=== PATIENT | male | born 1990 | race Caucasian/White ===

== ENCOUNTER → 2017-03-26 | Emergency (ER) | payer SELFPAY ==
[~2017-03-26] VITALS: Ht 175.3 cm; Wt 58.1 kg
[~2017-03-26] MED LIST: HYDR50CA PO; KCL 10 MEQ TAB (MICRO K) PO ONE; LACTATED RINGERS 1,000 ML IV ONE
--- NOTE | 2017-03-26 16:42 | ED General ---
General Chief Complaint: Neurological Problems Stated Complaint: POSSIBLE SEIZURE Source of Information: Patient, Family (DAD) History of Present Illness Time Seen by Provider: 16:27 Initial Comments PT ARRIVES VIA POV FROM HOME DAD THINKS IS HAVING A "SEIZURE"--PT IS NOT SEIZING, BUT IS HYPERVENTILATING AND HAVING CARPAL-PEDAL SPASMS AND IS NEARLY-HYSTERICAL, AND PT IS AWAKE, A & O X 4 AND TALKING THIS IS 3RD EPISODE IN LAST 24 HOURS, LAST TIME WAS EARLIER THIS AM DAD STATES HE HAS THESE AT LEAST 5-6 TIMES A YEAR NO RECENT ILLNESS DENIES ANY STRESSORS PT TAKES NO MEDICATIONS AND DENIES ANY MEDICAL PROBLEMS, WITH NO PRIOR HOSPITALIZATIONS OR SURGERIES PCP: [facility] Allergies and Home Medications Allergies Coded Allergies: No Known Drug Allergies (Unverified , 03/26/17) Constitutional: no symptoms reported EENTM: no symptoms reported Respiratory: see HPI (HYPERVENTILATING) Cardiovascular: no symptoms reported Gastrointestinal: no symptoms reported Genitourinary: no symptoms reported Musculoskeletal: see HPI Skin: no symptoms reported Psychiatric/Neurological: See HPI, Anxiety Hematologic/Lymphatic: No Symptoms Reported Immunological/Allergic: no symptoms reported Past [id number]-Odymjt Hx Patient Social History Alcohol Use: Occasionally Uses Recreational Drug Use: Yes (THC) Smoking Status: Current Everyday Smoker Type Used: Cigarettes Surgeries History of Surgeries: No Respiratory History of Respiratory Disorde: No Cardiovascular History of Cardiac Disorders: No Neurological History of Neurological Disord: No Genitourinary History of Genitourinary Disor: No Gastrointestinal History of Gastrointestinal Di: No Musculoskeletal History of Musculoskeletal Dis: No Endocrine History of Endocrine Disorders: No HEENT History of HEENT Disorders: No Cancer History of Cancer: No Psychosocial History of Psychiatric Problem: Yes (ANXIETY WITH HYPERVENTILATION) Behavioral Health Disorders: Anxiety Integumentary History of Skin or Integumenta: No Blood Transfusions History of Blood Disorders: No Physical Exam Vital Signs Vital Sign - Last 12Hours 03/26/17 16:25 Temp 98.0 Pulse 120 Resp 50 B/P (MAP) 114/80 Pulse Ox 97 O2 Delivery Non Rebreather Capillary Refill : General Appearance: Thin, Other (DIRTY, MALODOROUS, PT WITH SEVERE HYPERVENTILATION WITH CARPAL-PEDAL SPASMS AND EXTREMELY ANXIOUS. ) HEENT: PERRL/EOMI (PUPILS DILATED), Other (EXTREMELY POOR ORAL HYGIENE, POOR DENTITION) Neck: Full Range of Motion, Normal Inspection, Non Tender, Supple Respiratory: Chest Non Tender, Normal Breath Sounds, Other (HYPERVENTILATING) Cardiovascular: No Edema, No Murmur, Normal Peripheral Pulses, Tachycardia Gastrointestinal: Non Tender, Soft Back: Normal Inspection Extremity: Normal Inspection Neurologic/Psychiatric: Alert, Oriented x3, front tender II-XII Norm as Tested, Other ( GROSS MOTOR/SENSORY INTACT. CAPRAL - PEDAL SPASMS NOTED ABOVE, WITH HYPERVENTILATION. SPEECH IS STAMMERING DUE TO HYPERVENTILATION, BUT NO SLURRING OF SPEECH. . ) Skin: Normal Color, Warm/Dry, Tattoos/Piercings (TATTOOS, INCLUDING A LARGE ONE ON LEFT ARM, WITH MARIJUANA LEAVES AND THE DATE 08/22) Progress/Results/Core Measures Suspected Sepsis SIRS Temperature: Pulse: Respiratory Rate: Laboratory Tests 03/26/17 16:38: White Blood Count 9.6 Blood Pressure / Mean: Laboratory Tests 03/26/17 16:38: Creatinine 1.14, Platelet Count 364, Total Bilirubin 0.8 Results/Orders Lab Results Laboratory Tests Test 03/26/17 16:38 03/26/17 16:50 Range/Units White Blood Count 9.6 4.3-11.0 10^3/uL Red Blood Count 5.19 4.35-5.85 10^6/uL Hemoglobin 15.5 13.3-17.7 G/DL Hematocrit 44 40-54 % Mean Corpuscular Volume 84 80-99 FL Mean Corpuscular Hemoglobin 30 25-34 PG Mean Corpuscular Hemoglobin Concent 36 32-36 G/DL Red Cell Distribution Width 13.9 10.0-14.5 % Platelet Count 364 130-400 10^3/uL Mean Platelet Volume 10.1 7.4-10.4 FL Neutrophils (%) (Auto) 43 42-75 % Lymphocytes (%) (Auto) 41 12-44 % Monocytes (%) (Auto) 13 H 0-12 % Eosinophils (%) (Auto) 3 0-10 % Basophils (%) (Auto) 0 0-10 % Neutrophils # (Auto) 4.1 1.8-7.8 X 10^3 Lymphocytes # (Auto) 3.9 1.0-4.0 X 10^3 Monocytes # (Auto) 1.3 H 0.0-1.0 X 10^3 Eosinophils # (Auto) 0.3 0.0-0.3 10^3/uL Basophils # (Auto) 0.0 0.0-0.1 10^3/uL Sodium Level 142 135-145 MMOL/L Potassium Level 3.3 L 3.6-5.0 MMOL/L Chloride Level 105 98-107 MMOL/L Carbon Dioxide Level 16 L 21-32 MMOL/L Anion Gap 21 H 5-14 MMOL/L Blood Urea Nitrogen 13 7-18 MG/DL Creatinine 1.14 0.60-1.30 MG/DL Estimat Glomerular Filtration Rate > 60 BUN/Creatinine Ratio 11 Glucose Level 112 H 70-105 MG/DL Calcium Level 10.1 8.5-10.1 MG/DL Magnesium Level 1.9 1.8-2.4 MG/DL Total Bilirubin 0.8 0.1-1.0 MG/DL Aspartate Amino Transf (AST/SGOT) 21 5-34 U/L Alanine Aminotransferase (ALT/SGPT) 22 0-55 U/L Alkaline Phosphatase 100 40-136 U/L Total Protein 8.8 H 6.4-8.2 GM/DL Albumin 5.0 H 3.2-4.5 GM/DL TSH [place] Testing 1.19 0.35-4.94 UIU/ML Serum Alcohol < 10 <10 MG/DL Urine Color YELLOW Urine Clarity CLEAR Urine pH 7 5-9 Urine Specific [place] 1.005 L 1.016-1.022 Urine Protein NEGATIVE NEGATIVE Urine Glucose (UA) NEGATIVE NEGATIVE Urine Ketones NEGATIVE NEGATIVE Urine Nitrite NEGATIVE NEGATIVE Urine Bilirubin NEGATIVE NEGATIVE Urine Urobilinogen NORMAL NORMAL MG/DL Urine Leukocyte Esterase NEGATIVE NEGATIVE Urine RBC (Auto) NEGATIVE NEGATIVE Urine RBC NONE /HPF Urine WBC RARE /HPF Urine Crystals NONE /LPF Urine Bacteria NEGATIVE /HPF Urine Casts NONE /LPF Urine Mucus NEGATIVE /LPF Urine Culture Indicated NO Urine Opiates Screen NEGATIVE NEGATIVE Urine Oxycodone Screen NEGATIVE NEGATIVE Urine Methadone Screen NEGATIVE NEGATIVE Urine Propoxyphene Screen NEGATIVE NEGATIVE Urine Barbiturates Screen NEGATIVE NEGATIVE Ur Tricyclic Antidepressants Screen NEGATIVE NEGATIVE Urine Phencyclidine Screen NEGATIVE NEGATIVE Urine Amphetamines Screen NEGATIVE NEGATIVE Urine Methamphetamines Screen NEGATIVE NEGATIVE Urine Benzodiazepines Screen NEGATIVE NEGATIVE Urine Cocaine Screen NEGATIVE NEGATIVE Urine Cannabinoids Screen POSITIVE H NEGATIVE My Orders Orders - [place] SHEA DO Saline Lock/Iv-Start (03/26/17 16:33) Ekg Tracing (03/26/17 16:33) Monitor-Rhythm Ecg Trace Only (03/26/17 16:33) Alcohol (03/26/17 16:33) Cbc With Automated Diff (03/26/17 16:33) Comprehensive Metabolic Panel (03/26/17 16:33) Drug Screen Stat (Urine) (03/26/17 16:33) Magnesium (03/26/17 16:33) Thyroid Analyzer (03/26/17 16:33) Ua Culture If Indicated (03/26/17 16:33) Saline Lock/Iv-Start (03/26/17 16:33) Lactated Ringers (Lr 1000 Ml Iv Solution (03/26/17 16:33) Potassium Chloride (Tablet) (Klor Con Ta (03/26/17 17:30) Medications Given in ED Current Medications Medications Dose Ordered Sig/Ale Route Start Time Stop Time Status Last Admin Dose Admin Lactated Ringer's 1,000 ml @ 0 mls/hr Q0M ONCE IV 03/26/17 16:33 03/26/17 16:35 DC 03/26/17 17:10 0 MLS/HR Potassium Chloride 20 meq ONCE ONCE PO 03/26/17 17:30 03/26/17 17:31 03/26/17 17:27 20 MEQ Vital Signs/I&O Vital Sign - Last 12Hours 03/26/17 16:25 Temp 98.0 Pulse 120 Resp 50 B/P (MAP) 114/80 Pulse Ox 97 O2 Delivery Non Rebreather Capillary Refill : Progress Note : Progress Note PT PLACED ON NON-REBREATHER MASK AND PT COACHED ON SLOWING BREATHING, WITH COMPLETE RESOLUTION OF SYMPTOMS O2 SATS IN UPPER 90'S-100& ON ROOM AIR PT SMILING, TALKATIVE FOR REMAINDER OF ER STAY ECG Initial ECG Impression Time: 16:53 Initial ECG Rate: 69 Initial ECG Rhythm: Normal Sinus Initial ECG Impression: Normal Initial ECG Comparisson: No Previous ECG Available Departure Impression Impression: Primary Impression: ANXIETY WITH HYPERVENTILATION AND CARPAL-PEDAL SPASMS Additional Impression: MILD HYPOKALEMIA Disposition: 01 HOME, SELF-CARE Condition: Improved Departure-Patient Inst. Referrals: [facility] Patient Instructions: Anxiety, Adult (DC), Drug Abuse and Drug Addiction (DC), Hyperventilation, Hypokalemia (DC), Marijuana Use and Addiction (DC) Add. Discharge Instructions: IF YOU HAVE THESE SYMPTOMS AGAIN, IMMEDIATELY START BREATHING INTO A PAPER BAG INCREASE YOUR DAILY PROTEIN AND POTASSIUM INTAKE IN FOOD FOLLOW UP WITH [facility] NEXT WEEK FOR FURTHER CARE All discharge instructions reviewed with patient and/or family. Voiced understanding. [place] SHEA DO Mar 26, 2017 16:42
[2017-03-26 16:49] LABS: BASOPHILS % (AUTO) 0 % (0-10); EOSINOPHILS # (AUTO) 0.3 10^3/uL (0.0-0.3); EOSINOPHILS % (AUTO) 3 % (0-10); LYMPHOCYTES # (AUTO) 3.9 X 10^3 (1.0-4.0); LYMPHOCYTES % (AUTO) 41 % (12-44); MEAN CORPUSCULAR HEMOGLOBIN 30 PG (25-34); MEAN CORPUSCULAR HGB CONC 36 G/DL (32-36); MEAN CORPUSCULAR VOLUME 84 FL (80-99); MEAN PLATELET VOLUME 10.1 FL (7.4-10.4); MONOCYTES # (AUTO) 1.3 X 10^3 (0.0-1.0); MONOCYTES % (AUTO) 13 % (0-12); NEUTROPHILS # (AUTO) 4.1 X 10^3 (1.8-7.8); NEUTROPHILS % (AUTO) 43 % (42-75); PLATELET COUNT 364 10^3/uL (130-400); RED BLOOD COUNT 5.19 10^6/uL (4.35-5.85); RED CELL DISTRIBUTION WIDTH 13.9 % (10.0-14.5); WHITE BLOOD COUNT 9.6 10^3/uL (4.3-11.0)
[2017-03-26 16:58] LABS: BILIRUBIN,URINE NEGATIVE (NEGATIVE); KETONES,URINE NEGATIVE (NEGATIVE); LEUKOCYTE ESTERASE ,URINE NEGATIVE (NEGATIVE); NITRITE,URINE NEGATIVE (NEGATIVE); PH,URINE 7 (5-9); PROTEIN,URINE NEGATIVE (NEGATIVE); UROBILINOGEN,URINE NORMAL (NORMAL)
[2017-03-26 17:05] LABS: WBC,URINE RARE /HPF
[2017-03-26 17:07] LABS: ALANINE AMINOTRANSFERASE 22 U/L (0-55); ALCOHOL < 10 MG/DL (<10); ANION GAP 21 MMOL/L (5-14); ASPARTATE AMINO TRANSFERASE 21 U/L (5-34); BILIRUBIN,TOTAL 0.8 MG/DL (0.1-1.0); BLOOD UREA NITROGEN 13 MG/DL (7-18); BUN/CREATININE RATIO 11; CALCIUM 10.1 MG/DL (8.5-10.1); CARBON DIOXIDE 16 MMOL/L (21-32); CHLORIDE 105 MMOL/L (98-107); CREATININE SERUM 1.14 MG/DL (0.60-1.30); GFR ESTIMATED > 60; GLUCOSE 112 MG/DL (70-105); MAGNESIUM 1.9 MG/DL (1.8-2.4); POTASSIUM 3.3 MMOL/L (3.6-5.0); SODIUM 142 MMOL/L (135-145); TOTAL PROTEIN 8.8 GM/DL (6.4-8.2)
[2017-03-26 17:41] VITALS: BP 114/80
--- OUTSIDE RECORDS SUMMARY | 2017-03-27 14:03 | XMS REPORT ---
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 Name Role Phone ETHAN MCKEON Unavailable PROBLEMS Type Condition ICD9-CM Code [id number] Code Onset Dates Condition Status SNOMED Code Problem Premature ejaculation F52.4 Active [id number] ALLERGIES No Known Allergies SOCIAL HISTORY Never Assessed PLAN OF CARE Activity Details Follow Up 3 Months Marleny f/u male dysfunction Reason: VITAL SIGNS Height 5'10" in 2016-09-04 Weight 122.0 lbs 2016-09-04 Temperature 97.0 degrees Fahrenheit 2016-09-04 Heart Rate 86 bpm 2016-09-04 Respiratory Rate 18 2016-09-04 BMI 17.50 kg/m2 2016-09-04 Blood pressure systolic 100 mmHg 2016-09-04 Blood pressure diastolic 70 mmHg 2016-09-04 MEDICATIONS Medication Instructions Dosage Frequency Start Date End Date Duration Status Paxil 20 mg Orally Once a day 1/2 tablet in the morning x 1 week then take 1 tab daily 24h September, 30 day(s) Active RESULTS No Results PROCEDURES No Known procedures IMMUNIZATIONS No Known Immunizations
== END | disposition home or self-care (01) ==
LOC: EDUNIT# 16:25 → ER 16:27
DX: F41.9 Anxiety disorder, unspecified (principal); R29.0 Tetany; E87.6 Hypokalemia; F17.210 Nicotine dependence, cigarettes, uncomplicated; F12.10 Cannabis abuse, uncomplicated
CPT/HCPCS: 36415; 80053; 80306; 80320; 81000; 83735; 84443; 85025; 93041